=== PATIENT | male | born 1945 | race Caucasian/White ===

== ENCOUNTER 2016-12-15 05:33 | Inpatient (IN) | payer OTHER ==
[~2016-12-15] VITALS: Ht 179.1 cm; Wt 99.5 kg
[~2016-12-15 05:33] MED LIST: ALTOPREV20 MG PO; BUSPAR5 MG PO; CENTRUM SILVER1 EAC3 PO; DIABETA5 MG PO; GLUCOPHAGE1000 MG PO; JANUVIA100 MG PO; LANTUS 10100 UNITS/ SC; MAGNESIUM250 MG PO; OMEPRAZOLE40 M1 PO; TENORMIN100 MG PO
== END 2016-12-15 07:30 | disposition home or self-care (01) | DRG 554 ==
LOC: 2SOUTH 05:33
DX: M17.12 Unilateral primary osteoarthritis, left knee (principal); Z53.8 Procedure and treatment not carried out for other reasons
CPT/HCPCS: J7050

== ENCOUNTER 2017-01-12 05:28 | Inpatient (IN) | payer OTHER ==
[2017-01-12] VITALS (7 sets, daily range): BP systolic 126–158; BP diastolic 60–81
[~2017-01-12] VITALS: Ht 180.3 cm; Wt 97.4 kg
[~2017-01-12 05:28] MED LIST changes: +IRON325 M1 PO; +LEVEMIR FL100 UNIT/1 SC; +LYRICA50 MG PO
[2017-01-12 06:10] LABS: POINT-OF-CARE METER ID UU14174212
[2017-01-12 09:56] LABS: POINT-OF-CARE METER ID UU13113675
[2017-01-12 12:09] LABS: POINT-OF-CARE METER ID UU13113712
[2017-01-12 16:35] LABS: POINT-OF-CARE METER ID UU13113712
[2017-01-12 21:50] LABS: POINT-OF-CARE METER ID UU13113712
[2017-01-13 04:13] VITALS: BP 142/66
[2017-01-13 06:04] LABS: ANION GAP 8 MEQ/L (2-14); CHLORIDE 98 MEQ/L (99-109); GFR ESTIMATE (CALCULATED) > 59 mL/min/; GLUCOSE 156 mg/dL (70-99); POTASSIUM 4.2 MEQ/L (3.7-5.4); SAMPLE HEMOLYSIS CHECK 0; SAMPLE ICTERIC CHECK 0; SAMPLE LIPEMIA CHECK 0; SODIUM 137 MEQ/L (136-147); UREA NITROGEN (BUN) 13 mg/dL (9-23)
[2017-01-13 07:42] VITALS: BP 136/63
[2017-01-13 11:30] VITALS: BP 123/72
[2017-01-13 11:35] LABS: POINT-OF-CARE METER ID UU13113712
[2017-01-13 14:09] LABS: HEMATOCRIT 33.5 % (38.0-50.0); MCV 92.3 FL (86-99)
[2017-01-13 15:41] VITALS: BP 135/63
[2017-01-13 16:26] LABS: POINT-OF-CARE METER ID UU13113712
[2017-01-13 19:54] VITALS: BP 125/61
[2017-01-14 00:16] VITALS: BP 130/81
[2017-01-14 04:30] VITALS: BP 139/65
[2017-01-14 08:00] VITALS: BP 144/70
[2017-01-14 08:01] LABS: POINT-OF-CARE METER ID UU13113712
[2017-01-14] MEDS ORDERED: BENADRYL25 MG PO (10:37)
[2017-01-14] MEDS ORDERED: SENNA PLUS TAB1 EACH PO (10:40)
[2017-01-14] MEDS ORDERED: XARELTO10 MG PO (10:41)
[2017-01-14] MEDS ORDERED: OXYCODONE HCL5 MG PO (10:41)
[2017-01-14 11:14] LABS: POINT-OF-CARE METER ID UU13113712
[2017-01-14 11:40] VITALS: BP 144/64
== END 2017-01-14 14:36 | DRG 470 ==
LOC: 2SOUTH 05:28 → 3WEST 10:51 → 2SOUTH 11:11 → 3WEST 01-14 14:36
PROVIDERS: Orthopaedic Surgery; Physician Assistant Surgical
PROC: 0SRD0J9 Replacement of Left Knee Joint with Synthetic Substitute, Cemented, Open Approach (ICD-10-PCS; principal; 2017-01-12)
DX: M17.12 Unilateral primary osteoarthritis, left knee (principal); I10 Essential (primary) hypertension; E11.9 Type 2 diabetes mellitus without complications; E78.5 Hyperlipidemia, unspecified; M21.162 Varus deformity, not elsewhere classified, left knee; K21.9 Gastro-esophageal reflux disease without esophagitis; E78.00 Pure hypercholesterolemia, unspecified; G62.9 Polyneuropathy, unspecified; F41.9 Anxiety disorder, unspecified; I34.0 Nonrheumatic mitral (valve) insufficiency; I36.1 Nonrheumatic tricuspid (valve) insufficiency; Z87.891 Personal history of nicotine dependence
CPT/HCPCS: 80048; 82948; 85014; 85018; C1713; J0131; J0690; J1815; J1885; J2250; J2405; J7050; J7120; L1820; S0020

== ENCOUNTER 2017-05-10 13:52 | Emergency (ER) | payer OTHER ==
[~2017-05-10] VITALS: Ht 185.4 cm; Wt 95.9 kg
[~2017-05-10 13:52] MED LIST changes: +BENADRYL25 MG PO; +OXYCODONE HCL5 MG PO; +SENNA PLUS TAB1 EACH PO; +XARELTO10 MG PO
[2017-05-10 14:51] LABS: BASOPHIL COUNT 0.1 K/uL (0-0.1); EOSINOPHIL COUNT 0.1 K/uL (0-0.3); HEMATOCRIT 37.7 % (38.0-50.0); IMMATURE GRANULOCYTE (%) 0.4 % (0.0-0.7); INSTRUMENT ABS NEUTROPHIL CT 4.9 K/uL; LYMPHOCYTE COUNT 1.2 K/uL (1.0-2.8); MCHC 32.9 G/DL (30.0-36.0); MCV 91.3 FL (86-99); MONOCYTE (%) 6.9 % (3-12); MONOCYTE COUNT 0.5 K/uL (0-0.8); NEUTROPHIL (%) 73.3 % (45-76); NEUTROPHIL COUNT 4.9 K/uL (1.8-6.4); PLATELET COUNT 181 K/uL (156-360); RBC DIS.WIDTH-CV 14.4 % (11.8-14.6); RBC DIS.WIDTH-SD 47.8 % (39-53); RED BLOOD COUNT 4.13 M/uL (4.00-5.50); WHITE BLOOD COUNT 6.7 K/uL (4.1-10.2)
[2017-05-10 15:00] LABS: CHLORIDE 97 mEq/L (99-109); POTASSIUM 4.2 mEq/L (3.7-5.4); SODIUM 133 mEq/L (136-147)
[2017-05-10 15:01] LABS: GLUCOSE 168 mg/dL (70-99)
[2017-05-10 15:03] LABS: ANION GAP 7 MEQ/L (2-14)
[2017-05-10 15:05] LABS: GFR ESTIMATE (CALCULATED) > 59 mL/min/
[2017-05-10 15:06] LABS: UREA NITROGEN (BUN) 11 mg/dL (9-23)
[2017-05-10 15:11] LABS: TROP-I INTERPRETATION NEGATIVE; TROPONIN-I < 0.01 ng/mL (0.0-0.30)
[2017-05-10] MEDS ORDERED: LEVAQUIN500 MG PO (17:42)
[2017-05-10] MEDS ORDERED: VENTOLIN HFA18 GM IH (17:42)
[2017-05-10 17:48] VITALS: BP 145/69
== END 2017-05-10 18:02 | disposition home or self-care (01) ==
LOC: EME 13:52
PROVIDERS: Emergency Medicine
DX: J18.9 Pneumonia, unspecified organism (principal); T17.590A Other foreign object in bronchus causing asphyxiation, initial encounter; I10 Essential (primary) hypertension; K21.9 Gastro-esophageal reflux disease without esophagitis; F41.9 Anxiety disorder, unspecified; E11.9 Type 2 diabetes mellitus without complications; Z79.4 Long term (current) use of insulin; Z87.891 Personal history of nicotine dependence; Z96.659 Presence of unspecified artificial knee joint
CPT/HCPCS: 71275; 80048; 84484; 85025; 93005; 94640; 99281; 99285; J7030

== ENCOUNTER 2018-03-02 20:58 | Inpatient (IN) | payer OTHER ==
[~2018-03-02] VITALS: Ht 185.4 cm; Wt 89.5 kg
[~2018-03-02 20:58] MED LIST changes: +LEVAQUIN500 MG PO; +VENTOLIN HFA18 GM IH
[2018-03-02 21:53] LABS: HEMATOCRIT 35.7 % (38.0-50.0); HEMOGLOBIN 12.1 G/DL (12.5-16.6); MCH 30.2 PG (29.0-34.0); MCHC 33.9 G/DL (30.0-36.0); PLATELET COUNT 206 K/uL (156-360); RBC DIS.WIDTH-CV 14.7 % (11.8-14.6); RBC DIS.WIDTH-SD 48.5 % (39-53); RED BLOOD COUNT 4.01 M/uL (4.00-5.50); WHITE BLOOD COUNT 10.5 K/uL (4.1-10.2)
[2018-03-02 22:10] LABS: CHLORIDE 98 mEq/L (99-109); POTASSIUM 4.1 mEq/L (3.7-5.4); SODIUM 135 mEq/L (136-147)
[2018-03-02 22:11] LABS: GLUCOSE 136 mg/dL (70-99)
[2018-03-02 22:15] LABS: GFR ESTIMATE (CALCULATED) > 59 mL/min/ (58.99-99999)
[2018-03-02 22:16] LABS: UREA NITROGEN (BUN) 16 mg/dL (9-23)
[2018-03-02 22:19] LABS: TROP-I INTERPRETATION NEGATIVE; TROPONIN-I 0.03 ng/mL (0.0-0.30)
[2018-03-02 23:12] LABS: ALBUMIN 3.9 g/dL (3.2-4.8)
[2018-03-02 23:15] LABS: TOTAL PROTEIN 8.2 g/dL (6.4-8.3)
[2018-03-02 23:16] LABS: TOTAL BILIRUBIN 4.9 mg/dL (0.0-1.0)
[2018-03-02 23:17] LABS: ALKALINE PHOSPHATASE 272 IU/L (3-129)
[2018-03-02 23:20] LABS: AST (GOT) 50 IU/L (2-34); DIRECT BILIRUBIN 3.9 mg/dL (0.0-0.3)
[2018-03-02 23:21] LABS: ALT (GPT) 79 IU/L (3-49)
[2018-03-02 23:28] LABS: INTER. NORMALIZED RATIO 1.1
[2018-03-02 23:30] LABS: PTT 31.2 SEC (25-37)
[2018-03-02 23:39] LABS: LIPASE 2392 U/L (1.0-51.0)
[2018-03-03] MEDS ORDERED: PROAIR HFA8.5 GM IH (01:48)
[2018-03-03] MEDS ORDERED: GABAPENTIN100 MG PO (01:52)
[2018-03-03] MEDS ORDERED: NEURONTIN100 MG PO (01:55)
[2018-03-03] MEDS ORDERED: ATENOLOL100 MG PO (01:55)
[2018-03-03] MEDS ORDERED: LOVASTATIN20 MG PO (01:55)
[2018-03-03] MEDS ORDERED: METFORMIN HCL1000 MG PO (01:55)
[2018-03-03 04:01] LABS: BASOPHIL (%) 0.1 % (0-1); EOSINOPHIL (%) 0.1 % (0-5); IMMATURE GRANULOCYTE (%) 0.3 % (0.0-0.7); LYMPHOCYTE (%) 5.2 % (15-42); LYMPHOCYTE COUNT 0.4 K/uL (1.0-2.8); MCHC 33.3 G/DL (30.0-36.0); MCV 89.9 FL (86-99); MONOCYTE (%) 6.7 % (3-12); MONOCYTE COUNT 0.5 K/uL (0-0.8); NEUTROPHIL (%) 87.6 % (45-76); NEUTROPHIL COUNT 6.5 K/uL (1.8-6.4); PLATELET COUNT 183 K/uL (156-360); RBC DIS.WIDTH-SD 49.7 % (39-53); RED BLOOD COUNT 3.67 M/uL (4.00-5.50); WHITE BLOOD COUNT 7.5 K/uL (4.1-10.2)
[2018-03-03 04:09] LABS: AMYLASE 42 IU/L (1-118)
[2018-03-03 04:10] LABS: CHLORIDE 99 mEq/L (99-109); POTASSIUM 4.4 mEq/L (3.7-5.4); SODIUM 134 mEq/L (136-147)
[2018-03-03 04:11] LABS: GLUCOSE 192 mg/dL (70-99)
[2018-03-03 04:15] LABS: GFR ESTIMATE (CALCULATED) > 59 mL/min/ (58.99-99999)
[2018-03-03 04:16] LABS: UREA NITROGEN (BUN) 15 mg/dL (9-23)
[2018-03-03 05:54] VITALS: BP 122/89
[2018-03-03 07:10] VITALS: BP 140/80
[2018-03-03 09:44] LABS: LIPASE 1308 U/L (1.0-51.0)
[2018-03-03 10:25] LABS: ALBUMIN 3.6 g/dL (3.2-4.8)
[2018-03-03 10:28] LABS: TOTAL PROTEIN 7.3 g/dL (6.4-8.3)
[2018-03-03 10:30] LABS: TOTAL BILIRUBIN 4.3 mg/dL (0.0-1.0)
[2018-03-03 10:31] LABS: ALKALINE PHOSPHATASE 237 IU/L (3-129)
[2018-03-03 10:34] LABS: ALT (GPT) 69 IU/L (3-49); AST (GOT) 47 IU/L (2-34); DIRECT BILIRUBIN 3.3 mg/dL (0.0-0.3)
[2018-03-03 18:12] VITALS: BP 131/61
[2018-03-03 19:24] VITALS: BP 156/74
[2018-03-04] VITALS: BP 129/64
[2018-03-04 03:45] VITALS: BP 138/66
[2018-03-04 05:01] LABS: ALBUMIN 3.3 g/dL (3.2-4.8); CHLORIDE 103 mEq/L (99-109); POTASSIUM 3.8 mEq/L (3.7-5.4); SODIUM 139 mEq/L (136-147)
[2018-03-04 05:04] LABS: TOTAL PROTEIN 7.1 g/dL (6.4-8.3)
[2018-03-04 05:05] LABS: GLUCOSE 108 mg/dL (70-99)
[2018-03-04 05:07] LABS: ALKALINE PHOSPHATASE 224 IU/L (3-129); BASOPHIL (%) 0.7 % (0-1); CREATININE 0.8 mg/dL (0.6-1.3); EOSINOPHIL (%) 1.6 % (0-5); EOSINOPHIL COUNT 0.1 K/uL (0-0.3); GFR ESTIMATE (CALCULATED) > 59 mL/min/ (58.99-99999); HEMATOCRIT 32.1 % (38.0-50.0); HEMOGLOBIN 10.7 G/DL (12.5-16.6); IMMATURE GRANULOCYTE (%) 0.2 % (0.0-0.7); LYMPHOCYTE (%) 15.9 % (15-42); LYMPHOCYTE COUNT 0.7 K/uL (1.0-2.8); MCH 30.4 PG (29.0-34.0); MCHC 33.3 G/DL (30.0-36.0); MCV 91.2 FL (86-99); MONOCYTE (%) 10.3 % (3-12); MONOCYTE COUNT 0.5 K/uL (0-0.8); NEUTROPHIL (%) 71.3 % (45-76); NEUTROPHIL COUNT 3.1 K/uL (1.8-6.4); PLATELET COUNT 183 K/uL (156-360); RBC DIS.WIDTH-CV 15.1 % (11.8-14.6); RBC DIS.WIDTH-SD 50.8 % (39-53); RED BLOOD COUNT 3.52 M/uL (4.00-5.50); TOTAL BILIRUBIN 3.1 mg/dL (0.0-1.0); WHITE BLOOD COUNT 4.4 K/uL (4.1-10.2)
[2018-03-04 05:08] LABS: UREA NITROGEN (BUN) 10 mg/dL (9-23)
[2018-03-04 05:09] LABS: AST (GOT) 48 IU/L (2-34)
[2018-03-04 05:10] LABS: ALT (GPT) 61 IU/L (3-49)
[2018-03-04 07:35] VITALS: BP 142/78
[2018-03-04 10:21] VITALS: BP 138/70
[2018-03-04 11:19] LABS: LIPASE 592 U/L (1.0-51.0)
[2018-03-04 11:24] LABS: HEMOGLOBIN A1c (GLYCOHEMOGLOB) 6.6 % (Below 5.7)
[2018-03-04 15:52] VITALS: BP 139/65
[2018-03-04 22:27] VITALS: BP 166/80
[2018-03-05 00:31] VITALS: BP 155/75
[2018-03-05 03:58] VITALS: BP 131/72
[2018-03-05 05:44] LABS: BASOPHIL (%) 0.2 % (0-1); EOSINOPHIL (%) 0 % (0-5); HEMOGLOBIN 11.3 G/DL (12.5-16.6); IMMATURE GRANULOCYTE (%) 0.3 % (0.0-0.7); LYMPHOCYTE (%) 5.3 % (15-42); LYMPHOCYTE COUNT 0.5 K/uL (1.0-2.8); MCHC 32.3 G/DL (30.0-36.0); MCV 92.8 FL (86-99); MONOCYTE COUNT 0.5 K/uL (0-0.8); NEUTROPHIL (%) 89.2 % (45-76); NEUTROPHIL COUNT 8.5 K/uL (1.8-6.4); PLATELET COUNT 195 K/uL (156-360); RBC DIS.WIDTH-CV 15.4 % (11.8-14.6); RBC DIS.WIDTH-SD 52.2 % (39-53); RED BLOOD COUNT 3.77 M/uL (4.00-5.50); WHITE BLOOD COUNT 9.6 K/uL (4.1-10.2)
[2018-03-05 07:06] LABS: ALBUMIN 3.3 G/DL (3.2-4.8); ALKALINE PHOSPHATASE 198 IU/L (3-129); ALT (GPT) 69 IU/L (3-49); AST (GOT) 68 IU/L (2-34); CHLORIDE 97 MEQ/L (99-109); CREATININE 0.9 MG/DL (0.6-1.3); GFR ESTIMATE (CALCULATED) > 59 mL/min/ (58.99-99999); GLUCOSE 147 mg/dL (70-99); POTASSIUM 4.3 MEQ/L (3.7-5.4); SODIUM 134 MEQ/L (136-147); TOTAL BILIRUBIN 2.3 MG/DL (0.0-1.0); TOTAL PROTEIN 6.7 G/DL (6.4-8.3); UREA NITROGEN (BUN) 10 mg/dL (9-23)
[2018-03-05 07:37] VITALS: BP 140/66
[2018-03-05] MEDS ORDERED: COLACE100 MG PO (10:04)
[2018-03-05] MEDS ORDERED: NORCO 5/3251 TABLET PO (10:04)
[2018-03-05 10:19] VITALS: BP 138/66
== END 2018-03-05 14:41 | disposition home or self-care (01) | DRG 417 ==
LOC: EME 20:58 → EDOF 03-03 03:24 → 3EAST 03-03 03:24 → ENRESERV 03-03 03:25 → 3EAST 03-03 05:40
PROVIDERS: Emergency Medicine; Hospitalist
DX: K80.67 Calculus of gallbladder and bile duct with acute and chronic cholecystitis with obstruction (principal); J90 Pleural effusion, not elsewhere classified; K66.0 Peritoneal adhesions (postprocedural) (postinfection); K85.10 Biliary acute pancreatitis without necrosis or infection; D64.9 Anemia, unspecified; E11.40 Type 2 diabetes mellitus with diabetic neuropathy, unspecified; E78.5 Hyperlipidemia, unspecified; I10 Essential (primary) hypertension; K21.9 Gastro-esophageal reflux disease without esophagitis; F41.9 Anxiety disorder, unspecified; K57.50 Diverticulosis of both small and large intestine without perforation or abscess without bleeding; M19.90 Unspecified osteoarthritis, unspecified site; Z87.891 Personal history of nicotine dependence; Z83.3 Family history of diabetes mellitus; Z82.0 Family history of epilepsy and other diseases of the nervous system
CPT/HCPCS: 74177; 74181; 74300; 76705; 80048; 80053; 80076; 82140; 82150; 82565; 82948; 83036; 83605; 83690; 84484; 84520; 85025; 85027; 85610; 85730; 87040; 88304; 93005; 99202; 99281; 99283; C1769; C9113; J0131; J0330; J0744; J1100; J1170; J1644; J1815; J2270; J2405; J2543; J2710; J3010; J3480; J7030; J7040; J7050; J7643; S0030; S0074